=== PATIENT | female | born 1930 | race Caucasian/White ===

== ENCOUNTER 2020-12-10 10:31 | Outpatient (CLI) | payer MEDICARE | END 2020-12-10 10:32 | disposition home or self-care (01) | LOC: CSHCT 10:31 | PROVIDERS: ATTEND Internal Medicine Hematology & Oncology | DX: C49.4 Malignant neoplasm of connective and soft tissue of abdomen (principal); D49.0 Neoplasm of unspecified behavior of digestive system | CPT/HCPCS: 74177; 82565 ==

== ENCOUNTER 2021-09-28 11:58 | Outpatient (CLI) | payer MEDICARE | END 2021-09-28 11:59 | disposition home or self-care (01) | LOC: CSHCT 11:58 | PROVIDERS: ATTEND Internal Medicine Hematology & Oncology | DX: C49.4 Malignant neoplasm of connective and soft tissue of abdomen (principal); R19.02 Left upper quadrant abdominal swelling, mass and lump | CPT/HCPCS: 74177; 82565 ==

== ENCOUNTER 2022-03-30 12:05 | Outpatient (CLI) | payer MEDICARE | END 2022-03-30 12:06 | disposition home or self-care (01) | LOC: CSHCT 12:05 | PROVIDERS: ATTEND Internal Medicine Hematology & Oncology | DX: C49.4 Malignant neoplasm of connective and soft tissue of abdomen (principal); R19.02 Left upper quadrant abdominal swelling, mass and lump; R19.09 Other intra-abdominal and pelvic swelling, mass and lump | CPT/HCPCS: 74177; 82565 ==

== ENCOUNTER 2022-08-09 11:55 | Outpatient (CLI) | payer MEDICARE ==
[2022-08-09] MEDS ORDERED: Iopamidol 300 61% 100 ML VIAL FS ONE (15:37)
== END 2022-08-09 11:56 | disposition home or self-care (01) ==
LOC: CSHCT 11:55
PROVIDERS: ATTEND Internal Medicine Hematology & Oncology
DX: C49.A0 Gastrointestinal stromal tumor, unspecified site (principal); M79.89 Other specified soft tissue disorders
CPT/HCPCS: 74177; 82565